=== PATIENT | male | born 1960 | race Caucasian/White ===

== ENCOUNTER 2017-07-15 15:49 | Emergency (ER) | payer BC, MEDICAID ==
[~2017-07-15] VITALS: Ht 170.2 cm; Wt 88.5 kg
[2017-07-15 16:01] VITALS: BP 111/83
== END 2017-07-15 16:17 | disposition home or self-care (01) ==
LOC: ER 15:53
DX: R04.0 Epistaxis (principal); I10 Essential (primary) hypertension; Z95.818 Presence of other cardiac implants and grafts
CPT/HCPCS: 99282; A4606; Z7610